=== PATIENT | male | born 1975 | race Two or more races ===

== ENCOUNTER 2025-02-28 11:05 | Emergency (ER) | payer BC ==
[~2025-02-28] VITALS: Ht 182.9 cm; Wt 113.4 kg
[2025-02-28] MEDS ORDERED: AMLODIPINE-OLM1 EAC2 PO (13:18)
[2025-02-28] MEDS ORDERED: POVIDONE-IODINE 118 ML BOTT TOP ONE (13:29)
[2025-02-28] MEDS ORDERED: CEFTRIAXONE SODIUM 1,000 MG VIAL IM ONE (13:30)
[2025-02-28] MEDS ORDERED: LIDOCAINE HCL 1% 10ML VIAL PERCUT ONE (13:30)
[2025-02-28] MEDS ORDERED: KETOROLAC TROMETHAMINE 60 MG VIAL IM ONE ×2 (13:30→14:11)
[2025-02-28] MEDS ORDERED: LIDOCAINE HCL/MPF 1% 5ML VIAL IJ ONE (14:11)
[2025-02-28] MEDS ORDERED: CEFTRIAXONE SODIUM 1,000 MG VIAL ONE (14:11)
[2025-02-28] MEDS ORDERED: ACETAMINOPHEN 500 MG GEL..CAP PO ONE ×2 (14:21→14:45)
[2025-02-28] MEDS ORDERED: ORPHENADRINE CITRATE 30 MG/ML AMPUL IM ONE (19:30)
[2025-02-28] MEDS ORDERED: 0.9 % SODIUM CHLORIDE 1,000 ML IV SCH (19:30)
[2025-02-28] MEDS ORDERED: FAMOTIDINE/PF 20 MG in 0.9 % SODIUM CHLORIDE 8 ML IV PUSH ONE (19:30)
[2025-02-28] MEDS ORDERED: FAMOTIDINE/PF 20 MG/2 ML VIAL ONE (20:09)
[2025-02-28] MEDS ORDERED: ORPHENADRINE CITRATE 30 MG/ML AMPUL ONE (20:09)
[2025-02-28 20:54] LABS: BASO % 0.3 % (0.1-1.2); EOS # 0.03 (0.04-0.54); EOS % 0.2 % (0.7-7.0); LYMPH # 1.99 (1.18-3.74); LYMPH % 13.5 % (19.3-53.1); MEAN PLATELET VOLUME 10.20 fl (9.4-12.4); MONO # 1.79 (0.24-0.82); NEUT # 10.87 (1.56-6.13); NEUT % 73.6 % (34.0-71.1); RED CELL DISTRIBUTION WIDTH 12.3 % (11.6-14.4)
[2025-02-28 20:57] LABS: MONO % 12.1 % (4.7-12.5)
[2025-02-28 21:14] LABS: INR 1.03
[2025-02-28 21:14] LABS: URINE APPEARANCE Clear; URINE BILIRRUBIN Negative (NEGATIVE); URINE BLOOD Negative; URINE COLOR Yellow; URINE GLUCOSE Negative (NEGATIVE); URINE KETONE 15 (NEGATIVE); URINE LEUKOCYTE Negative; URINE NITRATE Negative; URINE PROTEIN 30 (NEGATIVE); URINE UROBILINOGEN 0.2 E.U./dl
[2025-02-28 21:18] LABS: ALT/SGPT 47.0 U/L (12-78); AST/SGOT 20.0 U/L (15-37); BILIRUBIN TOTAL 0.85 mg/dL (0.3-1.2); BUN CREA RATIO 16.0 (7.0-25.0); CREATININE SERUM 1.53 mg/dL (0.70-1.30); GFR 48.42; GLOBULINA 3.3 G/DL (2.4-3.5); GLUCOSE FASTING 99.0 mg/dL (65-100); OSMOLALITY SERUM 288.0 MOSM/KG (275-295)
[2025-02-28 21:20] LABS: URINE BACTERIA 49.1 uL (0.0-1933); URINE CAST 6.09 uL (0.0-1.40); URINE EPITHELIAL CELLS 38.0 uL (0.0-38.8); URINE RBC 4.1 uL (0.0-20.8); URINE WBC 21.4 uL (0.0-23.2)
[2025-03-01] MEDS ORDERED: PEPCID AC20 MG PO (00:06)
[2025-03-01] MEDS ORDERED: IBU600 MG PO (00:06)
[2025-03-01] MEDS ORDERED: NORFLEX100MG PO (00:06)
== END 2025-03-01 03:41 | disposition left against medical advice (07) ==
LOC: ER 11:06
PROVIDERS: General Practice
DX: S01.81XA Laceration without foreign body of other part of head, initial encounter (principal); S01.511A Laceration without foreign body of lip, initial encounter; S02.69XA Fracture of mandible of other specified site, initial encounter for closed fracture; W18.39XA Other fall on same level, initial encounter; Y93.89 Activity, other specified; Y92.89 Other specified places as the place of occurrence of the external cause; Y99.9 Unspecified external cause status; I10 Essential (primary) hypertension